=== PATIENT | female | born 1960 | race African-American/Black ===

== ENCOUNTER 2019-06-08 17:35 | Inpatient (IN) | payer OTHER ==
--- NOTE | 2019-06-08 18:33 | RAD ---
THREE VIEWS RIGHT WRIST: 06/08/19 HISTORY: Swelling to lower arm with limited mobility and increasing numbness. Injury to right arm and wrist. FINDINGS: There is suggestion of a few lucencies within the lateral aspect of the lunate bone which could relat e to minimal subchondral cystic changes. There is no evidence of a fracture, dislocation, or other os seous abnormality involving the right wrist. IMPRESSION: No acute osseous abnormality visualized. If patient's symptoms persist, conservative management and f ollow-up imaging is advised. POS: GIL[facility]
[2019-06-08 18:40] LABS: #Eosinphils 0.2 thou/uL (0.0-0.7); #Lymphocytes 1.3 thou/uL (1.20-3.40); #Monocytes 0.6 thou/uL (0.11-0.59); #Neutrophils 6.4 thou/uL (1.40-6.50); %Basophils 0.1 % (0.0-1.0); %Eosinophils 2.5 % (0.0-10.0); %Monocytes 7.4 % (0.0-10.0); Hemoglobin 7.8 g/dL (12.0-16.0); Mean Corpuscular HGB CONC 30.8 g/dL (32.0-36.0); Mean Corpuscular Hemoglobin 20.2 pg (27.0-31.0); Mean Corpuscular Volume 65.6 fL (78.0-98.0); Mean Platelet Volume 10.5 fL (7.4-10.4); Platelet Count 330 thou/uL (130-400); RBC Distribution Width 19.3 % (11.5-14.5); Red Blood Cell (RBC) Count 3.87 mill/uL (4.20-5.40); White Blood Cell (WBC) Count 8.5 thou/uL (4.8-10.8)
[2019-06-08 18:53] LABS: ALT (SGPT) Less than 7 U/L (8-55); AST (SGOT) 8 U/L (5-34); Albumin 3.6 g/dL (3.5-5.0); Alkaline Phosphatase 125 U/L (40-110); Anion Gap 13 mmol/L (10-20); BUN (Urea Nitrogen) 24 mg/dL (9.8-20.1); Bilirubin, Total 0.2 mg/dL (0.2-1.2); Calc. Creatinine Clearance 0 mL/min (70-130); Calcium 8.8 mg/dL (7.8-10.44); Carbon Dioxide 20 mmol/L (22-29); Chloride 110 mmol/L (98-107); Estimated GFR-MDRD 30; Globulin 4.9 g/dL (2.4-3.5); Potassium 4.9 mmol/L (3.5-5.1); Protein, Total 8.5 g/dL (6.0-8.3); Sodium 138 mmol/L (136-145)
[2019-06-08 18:57] LABS: Glucose 39 mg/dL (70-105)
[2019-06-08 19:01] LABS: Anisocytosis SLIGHT = 6-15 cells (100X) (0-5/hpf); Hypochromia SLIGHT = 6-15 cells (100X) (0-5/hpf); MDiff Complete? YES; Microcytosis MODERATE=15-30 cells (100X) (0-5/hpf); Ovalocytes SLIGHT = 2-5 cells (100X) (0-1/hpf); Platelet Morphology Comment Appears Adequate; Polychromasia SLIGHT = 2-3 cells (100X) (0-2/hpf); Schistocytes SLIGHT = 2-5 cells (100X) (0-1/hpf); Target Cells MODERATE= 6-15 cells (100X) (0-1/hpf)
[2019-06-08 19:31] LABS: Bacteria/HPF 1+ HPF (None Seen); Bilirubin Negative (Negative); Blood, Urine 2+ (Negative); Clarity Turbid (Clear); Glucose, Urine (Dipstick) Normal (Negative); Leukocyte 75 Leu/uL (Negative); Nitrite Negative (Negative); Protein, Urine (Dipstick) 50 mg/dL (Neg-Trace); RBC/HPF Greater than 50 HPF (0-3); Squamous Epithelial 0-3 HPF (0-3); Urobilinogen Normal mg/dL (Less than 2)
--- NOTE | 2019-06-08 19:40 | RAD ---
Chest AP view INDICATION: Dyspnea COMPARISON: None FINDINGS: Lungs: The lungs are clear Cardiac silhouette: The cardiomediastinal silhouette appears within normal limits. Pulmonary vasculature: Normal Pleural spaces: No pleural effusion or pneumothorax is demonstrated. Upper abdomen: No abnormality seen. Osseous structures: No acute osseous abnormality. Additional findings: None. IMPRESSION: No acute cardiopulmonary abnormality.
--- NOTE | 2019-06-08 20:52 | ULT ---
Doppler venous ultrasound of the right upper extremity INDICATION: History of right wrist pain and swelling TECHNIQUE: Grayscale, color Doppler and spectral Doppler images were obtained of the venous structure s of the right upper extremity. The right internal jugular vein, right subclavian vein, right-sided axillary vein, right cephalic vein, right basilic vein, right brachial vein, right radial and ulnar v eins were assessed. FINDINGS: There is appropriate, compression flow and phasicity seen within the right internal jugular vein. There is appropriate flow and phasicity seen within the right subclavian vein. Normal flow, compression and augmentation is seen within the right axillary vein, right brachial vein, right basil ic vein, right cephalic vein, right radial and right ulnar vein. Impression: No evidence of venous thrombosis within the right upper extremity.
[2019-06-08] MEDS ORDERED: Sodium Chloride 0.9% 100 ML ONE (21:40)
[2019-06-08] MEDS ORDERED: cefTRIAXone\\ROCEPHIN 2 GM VIAL ONE (21:40)
[2019-06-08] MEDS ORDERED: Ondansetron PF 4 MG/2 ML Vial IVP PRN (23:35)
[2019-06-08] MEDS ORDERED: Ondansetron ODT 4 MG TAB SL PRN (23:35)
[2019-06-09 00:19] VITALS: BMI 31.8
[2019-06-09] MEDS ORDERED: Dextrose 5% in Water 1,000 ML IV PRN (02:23)
[2019-06-09] MEDS ORDERED: Dextrose 50% Abboject 50 ML SYRINGE IVP PRN (02:23)
[2019-06-09] MEDS ORDERED: Acetaminophen 650 MG Suppository PR PRN (02:32)
[2019-06-09] MEDS: Acetaminophen 325 MG TAB PO PRN ×2 (02:41→22:35)
[2019-06-09] MEDS ORDERED: NIFEdipine XL 60 MG TAB PO SCH (11:00)
[2019-06-09] MEDS ORDERED: Losartan 25 MG TAB PO SCH (11:00)
[2019-06-09] MEDS ORDERED: Metoprolol Tartrate 100 MG TAB PO SCH (11:00)
--- NOTE | 2019-06-09 18:56 | RAD ---
Exam: 2 views right wrist HISTORY: Pain. Swelling. FINDINGS: Intercarpal and radiocarpal joint spaces are preserved. No fracture. No cortical irregulari ty or periosteal reaction. Radial styloid and ulnar styloid are preserved. IMPRESSION: No fracture.
--- NOTE | 2019-06-09 18:57 | RAD ---
Exam:Right elbow 2 view HISTORY: Pain. Swelling. COMPARISON: None FINDINGS: Preserved joint spaces. No fracture or malalignment. No joint effusion. IMPRESSION: Unremarkable 2 views right elbow
--- NOTE | 2019-06-09 18:58 | RAD ---
Exam:Right hand 3 views HISTORY: Pain. Swelling. COMPARISON: None FINDINGS: Preserved joint spaces. No fracture, cortical irregularity or periosteal reaction. IMPRESSION: 3 views right hand is unremarkable
[2019-06-09] MEDS: NIFEdipine XL 60 MG TAB PO SCH (22:30)
[2019-06-09] MEDS: Metoprolol Tartrate 100 MG TAB PO SCH (22:30)
[2019-06-09] MEDS: Atorvastatin Calcium 20 MG TAB PO SCH (22:30)
[2019-06-09] MEDS: cefTRIAXone\\ROCEPHIN 2 GM in Sodium Chloride 0.9% 100 ML IVPB SCH (22:35)
--- NOTE | 2019-06-10 00:20 | CON ---
DATE OF CONSULTATION: 06/09/2019 REQUESTING PHYSICIAN: Michael Simon MD REASON FOR CONSULTATION: Iron deficiency anemia. HISTORY OF PRESENT ILLNESS: Gabriela Cat is a very pleasant 58-year-old woman, who was admitted to the hospital last night with symptomatic iron deficiency anemia. She also had a mild fever as well as some swelling of the right wrist upon presentation, currently afebrile. Notably, she was noted to be anemic over the past several months. Outpatient referral had been made to our clinic back in March, but the patient had not been able to make an appointment yet. At that time, ferritin was 23, iron 17, with a 6% iron saturation. The patient reports that for several weeks, she has had progressive generalized weakness and fatigue, and also some reduction in appetite, occasional postprandial abdominal pain, and diarrhea. There has been no nausea or vomiting with this. She denies any melena or hematochezia, but really does not look at her bowel movements. She reports that she was switched from Coumadin to Eliquis in October of last year. Ever since that time, she has occasionally seen what appeared to be some spots of blood in the urine, but this is not too frequent. She denies any other bleeding from anywhere else such as epistaxis or hematemesis. Upon presentation here, her hemoglobin was 7.8 with MCV 65.6. Her Eliquis is being held today. She has no other complaints. REVIEW OF SYSTEMS: Full review of systems including constitutional, head, eyes, ears, nose, throat, GI, , cardiovascular, respiratory, musculoskeletal, neurologic systems is negative except as noted in the HPI. PAST MEDICAL HISTORY: Hypertension; hyperlipidemia; diabetes; osteoarthritis; tobacco abuse; CVA x2; gout; atrial fibrillation, currently on Eliquis. ALLERGIES: NO KNOWN DRUG ALLERGIES. OUTPATIENT MEDICATIONS: Lipitor, metformin, Diovan, metoprolol, hydrochlorothiazide, meloxicam 15 mg daily, insulin, Eliquis 2.5 mg b.i.d. SOCIAL HISTORY: She smokes one pack cigarettes per day. No alcohol or drug use. FAMILY HISTORY: Negative for GI malignancy. Her mother evidently had bleeding stomach ulcers. PHYSICAL EXAMINATION: VITAL SIGNS: Temperature 99.2, pulse 94, blood pressure 155/73, 94% oxygen saturation on room air. GENERAL: No acute distress, sitting up in bed comfortably. SKIN: She is a bit pale. No jaundice. No rashes are palpable. EYES: No scleral icterus. Extraocular movements intact. ENT: Mucous membranes moist. No oral lesions. LYMPH: No submandibular or supraclavicular lymphadenopathy. THYROID: Nontender to palpation. HEART: Regular rate and rhythm. LUNGS: Clear to auscultation bilaterally. ABDOMEN: Nondistended. Bowel sounds present. Soft, nontender to palpation. EXTREMITIES: No peripheral edema. LABORATORY STUDIES: WBC 8.5, hemoglobin 7.8, platelets 330. Sodium 138, potassium 4.9, BUN 24, creatinine 2.03, glucose 87, calcium 8.8. Total bilirubin 0.2, alkaline phosphatase 125, AST 8, ALT less than 7, albumin 3.6. Urinalysis shows greater than 50 rbc's, 11 to 20 wbc's. ASSESSMENT AND PLAN: 1. Iron deficiency anemia. 2. Atrial fibrillation, on Eliquis. 3. Microscopic hematuria, with occasional visible spotty gross hematuria. I had a long conversation with the patient and her family about iron deficiency anemia and possible causes. She has some occasional small volume gross hematuria, but unclear whether that can be blamed for her anemia or not. Occult gastrointestinal bleeding lesion does need to be considered. I recommend that we proceed with EGD and colonoscopy, she has never undergone any endoscopic investigation in the past. Notably, she takes meloxicam, so there is some risk for peptic ulcer disease. We need to hold the Eliquis two days prior to the procedure, so continue to hold the Eliquis tomorrow, be on clear liquids tomorrow, and we will plan for bowel preparation tomorrow evening with EGD and colonoscopy the following day. The patient understands and agrees with the plan. Thank you for the consultation. Please call at any time with questions or concerns. Job ID: [id number]
--- NOTE | 2019-06-10 00:48 | CON ---
DATE OF CONSULTATION: 06/09/2019 CHIEF COMPLAINT: Right upper extremity pain, elbow pain, and wrist pain. HISTORY OF PRESENT ILLNESS: Ms. Cat is a 58-year-old female who was admitted currently for anemia workup, for her right arm pain. The patient is a 58-year-old type 1 diabetic, who is complaining of right elbow swelling and pain. She states she hit her elbow on the sink about 2 weeks ago and the wrist, and noticed swelling which started increasing in the last couple of days. The patient was seen by her primary care doctor, known to have anemia, admitted for transfusion. PAST MEDICAL HISTORY: Includes hyperlipidemia, hypertension, type 1 diabetes, transient ischemic attacks, irregular heartbeat, chronic kidney disease. PAST SURGICAL HISTORY: Includes previous neck procedure, not otherwise specified. ALLERGIES: NO KNOWN DRUG ALLERGIES. MEDICATIONS: Include: 1. Atorvastatin. 2. Metformin. 3. Diovan. 4. Metoprolol. 5. Hydrochlorothiazide. 6. Meloxicam. 7. Novolin. 8. Eliquis. SOCIAL HISTORY: Nonsmoker, nondrinker. Denies illicit drug use. PHYSICAL EXAMINATION: VITAL SIGNS: 99.2, 94, 20, 94% on room air, 155/73. GENERAL: Alert and oriented female, in no acute distress, resting comfortably in bed. Right upper extremity shows swelling unable to make a fist. NEUROVASCULARLY: Intact. Palpable refill. She is tender over her olecranon. There is IV in place. LABORATORY VALUES: Showing a white cell count 8, H and H of 7 and 25. Chemistry shows a low glucose of 39 and a creatinine of 2.03. X-rays of her wrist show no acute fracture. The patient had an ultrasound of her right upper extremity, which shows no DVT. IMPRESSION: Right upper extremity swelling elbow and wrist. ASSESSMENT AND PLAN: I will send the patient for elbow films. I am sure this is just a contusion with swelling postoperatively, which just will need some conservative management with range of motion of hands and fingers to get this swelling out. There are no acute fractures or acute intervention. I will follow up with the x-rays the morning. Job ID: [id number]
[2019-06-10 05:42] LABS: #Eosinphils 0.2 thou/uL (0.0-0.7); #Lymphocytes 1.4 thou/uL (1.20-3.40); #Monocytes 0.7 thou/uL (0.11-0.59); #Neutrophils 3.6 thou/uL (1.40-6.50); %Basophils 0.8 % (0.0-1.0); %Eosinophils 2.6 % (0.0-10.0); %Lymphocytes 24.1 % (21.0-51.0); %Neutrophils 61.5 % (42.0-75.0); Hemoglobin 7.6 g/dL (12.0-16.0); Mean Corpuscular HGB CONC 30.6 g/dL (32.0-36.0); Mean Corpuscular Hemoglobin 20.1 pg (27.0-31.0); Mean Corpuscular Volume 65.7 fL (78.0-98.0); Mean Platelet Volume 10.3 fL (7.4-10.4); Platelet Count 311 thou/uL (130-400); RBC Distribution Width 19.3 % (11.5-14.5); Red Blood Cell (RBC) Count 3.76 mill/uL (4.20-5.40); White Blood Cell (WBC) Count 5.9 thou/uL (4.8-10.8)
[2019-06-10 06:01] LABS: ALT (SGPT) Less than 7 U/L (8-55); AST (SGOT) 10 U/L (5-34); Albumin 3.2 g/dL (3.5-5.0); Alkaline Phosphatase 106 U/L (40-110); Anion Gap 16 mmol/L (10-20); BUN (Urea Nitrogen) 25 mg/dL (9.8-20.1); Bilirubin, Total 0.2 mg/dL (0.2-1.2); Calc. Creatinine Clearance 38 mL/min (70-130); Calcium 8.1 mg/dL (7.8-10.44); Carbon Dioxide 19 mmol/L (22-29); Chloride 108 mmol/L (98-107); Estimated GFR-MDRD 30; Globulin 4.4 g/dL (2.4-3.5); Glucose 127 mg/dL (70-105); Potassium 4.6 mmol/L (3.5-5.1); Protein, Total 7.6 g/dL (6.0-8.3); Sodium 138 mmol/L (136-145); Uric Acid 9.7 mg/dL (2.6-6.0)
[2019-06-10] MEDS: Metoprolol Tartrate 100 MG TAB PO SCH ×2 (08:44→20:08)
[2019-06-10] MEDS: Losartan 25 MG TAB PO SCH (08:44)
[2019-06-10] MEDS: NIFEdipine XL 60 MG TAB PO SCH ×2 (08:44→20:06)
--- NOTE | 2019-06-10 09:28 | PRG ---
DATE OF SERVICE: 06/10/2019 SUBJECTIVE: Ms. Cat is feeling alright this morning. She has no complaints of abdominal pain or nausea. She does say in paying more attention to her stool recently maybe there has been some intermittent bright red blood, but again states mainly she will see spotting of blood in her urine from [id number]. She recalls having a large nosebleed episode a couple of years ago, but none since then. OBJECTIVE: VITAL SIGNS: Temperature 98.2, spiked at 100.0 last night; pulse 87; blood pressure 145/73; oxygen saturation 94% on room air. GENERAL: No acute distress. HEART: Regular rate and rhythm. LUNGS: Clear to auscultation bilaterally. ABDOMEN: Soft, nontender to palpation. EXTREMITIES: No peripheral edema. LABORATORY STUDIES: Hemoglobin 7.6, WBC 5.9, MCV 65.7, and platelets 311. ESR is greater than 130. Sodium 138, potassium 4.6, BUN 25, creatinine 2.03, glucose 143, uric acid 9.7, total bilirubin 0.2, alkaline phosphatase 106, AST 10, and ALT less than 7. ASSESSMENT AND PLAN: 1. Iron deficiency anemia. 2. Atrial fibrillation, on Eliquis. 3. Microscopic hematuria, with the patient report of intermittent gross hematuria. Eliquis is being held today as well as yesterday. We are still planning on diagnostic EGD and colonoscopy tomorrow to rule out occult GI bleeding lesion as a contributor to her iron deficiency anemia. Depending on findings, I would recommend also consideration of urologic workup. Further recommendations following EGD/colonoscopy tomorrow. Job ID: [id number]
[2019-06-10] MEDS ORDERED: GoLYTELY 4,000 ml Bottle PO SCH (09:30)
[2019-06-10] MEDS ORDERED: Bacteriostatic Water 30 ML VIAL FS PRN ×2 (15:56)
[2019-06-10] MEDS ORDERED: methylPREDNISolone Sod Succ/PF 125 MG/2 ML VIAL IVP SCH (16:00)
[2019-06-10] MEDS: Insulin Regular 300 UNITS/3 ML VIAL SC PRN (16:55)
[2019-06-10] MEDS: cefTRIAXone\\ROCEPHIN 2 GM in Sodium Chloride 0.9% 100 ML IVPB SCH (20:03)
[2019-06-10] MEDS: Atorvastatin Calcium 20 MG TAB PO SCH (20:06)
--- NOTE | 2019-06-10 21:46 | CON ---
DATE OF CONSULTATION: HISTORY OF PRESENT ILLNESS: Ms. Cat is a 58-year-old female, was admitted for right elbow and right wrist pain with swelling. History of gout. Patient had injury two weeks ago and swelling, decreased function of right hand. Previous x-rays of the wrist were normal. PHYSICAL EXAMINATION: GENERAL: No acute distress. EXTREMITIES: Swelling improved. Motion improved. No erythema or ecchymosis noted. Tenderness improved. RADIOGRAPHS: Radiographs of the right elbow show no acute fracture or dislocation. IMPRESSION: Possible gout versus cellulitis versus acute soft tissue injury. ASSESSMENT AND PLAN: The patient will continue medical management. No surgical intervention required. She may follow up with PCP as needed. Job ID: [id number]
[2019-06-10] MEDS: methylPREDNISolone Sod Succ 40 MG VIAL IVP SCH (22:00)
[2019-06-11] MEDS: Metoprolol Tartrate 100 MG TAB PO SCH ×2 (05:06→21:02)
[2019-06-11] MEDS: methylPREDNISolone Sod Succ 40 MG VIAL IVP SCH ×3 (05:06→13:56)
[2019-06-11] MEDS: Insulin Regular 300 UNITS/3 ML VIAL SC PRN ×3 (06:58→17:01)
[2019-06-11 07:39] LABS: Bacteria/HPF None Seen HPF (None Seen); Bilirubin Negative (Negative); Blood, Urine 2+ (Negative); Clarity Clear (Clear); Glucose, Urine (Dipstick) 50 mg/dL (Negative); Leukocyte Negative Leu/uL (Negative); Nitrite Negative (Negative); Protein, Urine (Dipstick) 70 mg/dL (Neg-Trace); Squamous Epithelial 0-3 HPF (0-3); Urobilinogen Normal mg/dL (Less than 2)
[2019-06-11 08:12] LABS: WBC/HPF 0-3 HPF (0-3)
[2019-06-11] MEDS: Losartan 25 MG TAB PO SCH (09:38)
[2019-06-11] MEDS ORDERED: PROPOFOL 200 MG/20 ML VIAL ONE (10:00)
--- NOTE | 2019-06-11 11:41 | OP ---
DATE OF PROCEDURE: 06/11/2019 RIGGER THIRD SURGEON: None. PROCEDURES PERFORMED: 1. Esophagogastroduodenoscopy with biopsies. 2. Colonoscopy with snare polypectomy. INDICATION: Iron deficiency anemia. MEDICATIONS: See Anesthesia record. FINDINGS: After discussion of the risks, benefits, and alternatives of the procedure, informed consent was obtained and witnessed. Pre-endoscopic cardiopulmonary examination was satisfactory. Time-out was performed before sedation was achieved. Sedation was achieved with Anesthesia assistance in the endoscopy unit. A Pentax adult upper endoscope was placed into the oropharynx and passed through the cricopharyngeus under direct visualization. The esophageal mucosa appeared normal throughout with a normal-appearing Z-line. The endoscope was advanced into the stomach. Forward and retroflexed views of the entire gastric mucosa were obtained. The gastric mucosa appeared normal throughout. There was no evidence of any old blood, active bleeding or bleeding lesions. The endoscope was advanced through the pylorus and into the first and second portions of the duodenum, which also appeared normal. I obtained biopsies from the second portion of the duodenum, to rule out celiac disease. The upper endoscope was completely withdrawn and the patient was repositioned. Digital rectal exam was performed, which demonstrated some external hemorrhoidal skin tags. A Pentax adult colonoscope was inserted into the anus and passed forward to the cecum in the usual fashion. The cecal base was identified by the appendiceal orifice as well as the ileocecal valve. The terminal ileum was not intubated. The colonoscope was slowly withdrawn in a gradual and circumferential manner with careful examination of the entire colonic mucosa. The quality of the prep was adequate. There was no evidence of any old blood or active bleeding or bleeding lesions within the colon. There was diverticulosis scattered throughout the entire colon. In the sigmoid colon, there were 2 small polyps, each measuring about 2 mm in diameter. These were both completely removed with cold snare and retrieved for pathology. Retroflexion in the rectum demonstrated internal hemorrhoids. The colonoscope was completely withdrawn and the patient allowed to recover. The patient tolerated the procedure well. There were no immediate postprocedure complications. IMPRESSION: 1. Normal esophagogastroduodenoscopy, with duodenal biopsies obtained to rule out celiac disease. 2. Two small sigmoid polyps, completely removed with cold snare and retrieved for pathology. 3. Diverticulosis throughout the colon. 4. Internal hemorrhoids. RECOMMENDATIONS: 1. Follow up pathology. 2. Repeat colonoscopy based on pathology. If one or both polyps is an adenoma, repeat colonoscopy in 5 years. If both are hyperplastic, repeat colonoscopy in 10 years. 3. Iron supplementation. 4. Stop smoking. 5. If there is no improvement in anemia despite iron supplementation, we could potentially consider small bowel capsule endoscopy on an outpatient basis. GI will sign off. Please call back anytime with questions or concerns. Job ID: [id number]
--- NOTE | 2019-06-11 16:04 | ULT ---
Exam: Bilateral renal ultrasound HISTORY: Hematuria COMPARISON: None FINDINGS: Right kidney: Normal cortical echotexture. No hydronephrosis. Right kidney measurements: 4.6 x 5.3 x 10.4 cm. Left kidney: Normal cortical echotexture. No hydronephrosis Left kidney measurements 4.7 x 5.0 x 8.6 cm. Urinary bladder: Normal mucosa. 33 mL of bladder volume. IMPRESSION: No hydronephrosis.
[2019-06-11] MEDS: Atorvastatin Calcium 20 MG TAB PO SCH (21:01)
[2019-06-11] MEDS: Cepastat Lozenges 1 LOZ PO PRN (21:01)
[2019-06-11] MEDS: NIFEdipine XL 60 MG TAB PO SCH (21:01)
[2019-06-11] MEDS: cefTRIAXone\\ROCEPHIN 2 GM in Sodium Chloride 0.9% 100 ML IVPB SCH (21:03)
[2019-06-11] MEDS: HumuLIN 70/30 (300 UNITS/3 ML VIAL) SC SCH (21:04)
[2019-06-12] MEDS: methylPREDNISolone Sod Succ 40 MG VIAL IVP SCH ×5 (01:08→22:25)
[2019-06-12 05:27] LABS: Red Blood Cell (RBC) Count 3.94 mill/uL (4.20-5.40)
[2019-06-12] MEDS: Insulin Regular 300 UNITS/3 ML VIAL SC PRN ×3 (06:04→18:09)
[2019-06-12 06:47] LABS: Anion Gap 15 mmol/L (10-20); BUN (Urea Nitrogen) 29 mg/dL (9.8-20.1); Calc. Creatinine Clearance 38 mL/min (70-130); Calcium 8.7 mg/dL (7.8-10.44); Carbon Dioxide 21 mmol/L (22-29); Chloride 106 mmol/L (98-107); Estimated GFR-MDRD 31; Glucose 254 mg/dL (70-105); Iron Less than 8 ug/dL (50-170); Iron Binding Capacity, Total 249 mcg/dL (265-497); Potassium 4.6 mmol/L (3.5-5.1); Sodium 137 mmol/L (136-145)
[2019-06-12 07:09] LABS: Ferritin 58.35 ng/mL (10-291)
[2019-06-12 07:24] LABS: #Basophils 0.1 thou/uL (0.0-0.2); #Lymphocytes 0.6 thou/uL (1.20-3.40); #Monocytes 0.4 thou/uL (0.11-0.59); #Neutrophils 9.8 thou/uL (1.40-6.50); %Basophils 0.6 % (0.0-1.0); %Eosinophils 0.1 % (0.0-10.0); %Lymphocytes 5.2 % (21.0-51.0); %Monocytes 3.2 % (0.0-10.0); %Neutrophils 90.8 % (42.0-75.0); Hemoglobin 7.9 g/dL (12.0-16.0); Hypochromia SLIGHT = 6-15 cells (100X) (0-5/hpf); MDiff Complete? YES; Mean Corpuscular HGB CONC 29.7 g/dL (32.0-36.0); Mean Corpuscular Hemoglobin 19.5 pg (27.0-31.0); Mean Corpuscular Volume 65.5 fL (78.0-98.0); Mean Platelet Volume 4.8 fL (7.4-10.4); Microcytosis MODERATE=15-30 cells (100X) (0-5/hpf); Platelet Count 341 thou/uL (130-400); Platelet Morphology Comment Appears Adequate; Polychromasia SLIGHT = 2-3 cells (100X) (0-2/hpf); RBC Distribution Width 19.5 % (11.5-14.5); Red Blood Cell (RBC) Count 4.07 mill/uL (4.20-5.40); Schistocytes SLIGHT = 2-5 cells (100X) (0-1/hpf); White Blood Cell (WBC) Count 10.8 thou/uL (4.8-10.8)
--- NOTE | 2019-06-12 07:42 | HP ---
REASON FOR ADMISSION/CHIEF COMPLAINT: Severe anemia. HISTORY OF PRESENT ILLNESS: Ms. Cat is a 58-year-old female with past medical history of hypertension, diabetes, chronic atrial fibrillation , on Eliquis, was sent to the hospital because of anemia. The patient was seen in the office and had routine labs done. She had a history of anemia and CBC showed hemoglobin of 6.8, which is iron deficiency. The patient also has some shortness of breath and exertion as well. She was sent to the hospital for evaluation. In the ER, the patient was found to have hemoglobin of 7.8. In view of her iron deficiency anemia, she is being admitted for further evaluation and management. The patient also has right elbow and wrist pain going on for more than a week. No history of any injury. Right elbow and wrist both were swollen, unable to move both elbow and wrist. The patient had ultrasound done and that revealed no evidence of any thrombosis. The patient does not have any chest pain. She has shortness of breath. No dizziness. The patient was also found to have hemorrhagic cystitis, given ceftriaxone. PAST MEDICAL HISTORY: 1. Hypertension. 2. Diabetes mellitus. 3. Hyperlipidemia. 4. Chronic atrial fibrillation. PAST SURGICAL HISTORY: Status post biopsy of neck. CURRENT MEDICATIONS: The patient is on: 1. Atorvastatin 20 mg daily. 2. Metformin 500 mg b.i.d. 3. Diovan 160 daily. 4. Metoprolol 50 mg b.i.d. 5. Hydrochlorothiazide 12.5 mg daily. 6. Insulin 70/30 of 40 units in the morning and 30 units in the evening. 7. Eliquis 2.5 mg b.i.d. FAMILY HISTORY: Nothing contributory. SOCIAL HISTORY: The patient lives with family. No history of alcohol intake. Smokes one pack a day. REVIEW OF SYSTEMS: CARDIOVASCULAR: No chest pain. Has shortness of breath on exertion. RESPIRATORY: No fever or cough. GASTROINTESTINAL: No abdominal pain. No melena CENTRAL NERVOUS SYSTEM: No headache. No dizziness. PHYSICAL EXAMINATION: GENERAL: The patient is alert, awake, oriented x3. VITAL SIGNS: Temp 98, pulse 94, respiratory rate 20, blood pressure 159/68. HEENT: Head is normocephalic, atraumatic. Pupils equal, round, reactive to light. Nasopharynx is pale and dry. NECK: Supple. No JVD. LUNGS: Bilateral air entry present. No rales. No rhonchi. HEART: S1 and S2, regular. ABDOMEN: Soft. No distention. No tenderness. No organomegaly. Bowel sounds present. RECTAL: Deferred. CENTRAL NERVOUS SYSTEM: No focal neural deficit. EXTREMITIES: Right elbow is swollen. Right wrist also is swollen. Both are very tender. Whole right forearm to the fingers is diffusely swollen. Right elbow is warm to touch, but no erythema. Range of movement is markedly decreased at the elbow. LABORATORY DATA: CBC shows WBC 8.5, hemoglobin 7.8, hematocrit 25, platelets 330. Metabolic panel; sodium 138, potassium 4.9, chloride 110, CO2 of 20, BUN 24, creatinine 2, glucose 39. Urinalysis revealed wbc's 11 to 20, rbc greater than 50, bacteria 1+. ASSESSMENT: 1. Severe iron deficiency anemia, symptomatic. 2. Right elbow swelling, pain and also right wrist pain. 3. Hypoglycemia. 4. Hypertension. 5. Atrial fibrillation, chronic. On anticoagulation. 6. History of pulmonary hypertension. 7. Chronic kidney disease stage 3. PLAN: 1. Vital signs q.4 hours. 2. Activity, as tolerated. 3. Allergies, NKDA. 4. Hep-Lock. 5. Transfuse packed red blood cells p.r.n. 6. We will get an x-ray of the right elbow and wrist. 7. GI consult. 8. Continue home medication. 9. Accu-Chek before meals and at bedtime. Sliding scale mild with regular insulin. 10. We will hold insulin and metformin. 11. Orthopedic consult. Job ID: [id number] [facility]
[2019-06-12] MEDS: Metoprolol Tartrate 100 MG TAB PO SCH ×2 (09:07→22:17)
[2019-06-12] MEDS: HumuLIN 70/30 (300 UNITS/3 ML VIAL) SC SCH ×2 (09:08→22:18)
[2019-06-12] MEDS: Losartan 25 MG TAB PO SCH (10:28)
--- NOTE | 2019-06-12 11:38 | CON ---
DATE OF CONSULTATION: 06/12/2019 REASON FOR CONSULTATION: 1. Gross hematuria. 2. Possible urinary tract infection. 3. History of long-term cigarette smoking 40 pack years. HISTORY OF PRESENT ILLNESS: Ms. Gabriela Cat is a very pleasant 58-year-old female, who was admitted on 06/08/2019, due to severe anemia. Her hemoglobin was down to 6.8, and she had evidence of iron deficiency with microcytic anemia. The patient had shortness of breath and exertional dyspnea as well. The patient was admitted to the hospital for evaluation via the Emergency Department, where she was found to have a hemoglobin of 7.8. The patient was admitted for further evaluation and management. Ms. Cat's family medical history is notable for renal cancer in her maternal aunt and her maternal grandmother. Gabriela is 3, para 2, and is postmenopausal since her mid 40s. She is currently 58 years old, so has been postmenopausal for about 18 years. She has not ever been on estrogen replacement products. She was smoking one and half packs per day and is now down to one pack per day and was smoking right up until hospital admission. PAST MEDICAL HISTORY: 1. Hypertension. 2. Diabetes mellitus. 3. Hyperlipidemia. 4. Chronic atrial fibrillation. 5. Long-term cigarette smoker greater than 40 pack years. 6. Hematuria. PAST SURGICAL HISTORY: The patient had a biopsy of her thyroid gland many years ago. She has had no gynecologic surgeries. MEDICATIONS: Home medication list includes the followin. Atorvastatin 20 mg per day. 2. Metformin 500 mg twice a day. 3. Diovan 160 mg per day. 4. Metoprolol 50 mg p.o. b.i.d. 5. Hydrochlorothiazide 12.5 mg p.o. daily. 6. Insulin 70/30, 40 units in the morning and 30 units in the evening. 7. Eliquis 2.5 mg b.i.d. FAMILY MEDICAL HISTORY: Notable for the patient's maternal aunt and maternal grandmother both having had renal cancer. SOCIAL HISTORY: The patient resides with her family. She specifically denies any alcohol intake and is currently a one pack per day cigarette smoker, down from 1.5 packs per day in the past with a 40 pack year or more cigarette smoking history. There is no substance abuse history. The patient has had no industrial exposures at work outside of the home. REVIEW OF SYSTEMS: CARDIOVASCULAR: The patient currently denies chest pain and does have shortness of breath on exertion, likely secondary to her anemia. PULMONARY: No fever or cough. No sick household contacts. GASTROINTESTINAL: Denies gross blood per rectum, but does not check her stool. Does not look at her stool and does not look the toilet paper after wiping. GENITOURINARY: The patient did notice when wiping on the front some blood on toilet paper. CENTRAL NERVOUS SYSTEM: No headache or stroke symptoms. MUSCULOSKELETAL: No complaints. SKIN SURVEY: No significant scar as the patient does have some varices in her legs. PHYSICAL EXAMINATION: VITAL SIGNS: Temperature is 98.5, pulse 77, respiratory rate is 20, room air O2 saturation is 93%, and blood pressure is 147/78, down from a fairly hypertensive 162/79 earlier in the day. HEAD, EYES, EARS, NOSE, AND THROAT: Extraocular movements are intact. Sclerae anicteric. Oropharynx is clear. NECK: Supple. LUNGS: Clear to auscultation bilaterally. CARDIAC: Regular rate and rhythm without murmur, rub, or gallop. ABDOMEN: Soft, obese, and nontender. There are no surgical scars present. GENITOURINARY: The patient has normal external genitalia. Urethral meatus is slightly reddened in appearance in the periurethral tissue, has pallor consistent with a postmenopausal low estrogen state. There is minimal anterior vaginal wall descent on Valsalva maneuver. RECTAL: Examination was not performed. EXTREMITIES: Appear within normal limits with no clubbing, cyanosis, or edema. There are some varices on her legs bilaterally. NEUROLOGIC: Cranial nerves 3 through 11 appear to be grossly intact. The patient is able ambulate, move all 4 extremities against gravity without difficulty. LABORATORY STUDIES: After initial low hematocrit, her hematocrit today is notable for a rise to 26.7. Current hemoglobin is 7.9. The patient does not have an elevation of her white count, but it is up to 10.8 today. The serum chemistry show current blood urea nitrogen of 29 and creatinine of 1.99 with an estimated glomerular filtration of 31, consistent with stage IIIB chronic renal insufficiency. Her total iron level is less than 8, which is low. Total iron binding concentration is 249. Folate level is 2.2, suggesting possible metabolic cause for the patient's current anemia. ASSESSMENT AND PLAN: 1. Current cigarette smoking. Smoking cessation is indicated. 2. Gross hematuria. It is unclear where in the context of an actual infection as the microbiology report shows a mixed culture with some Escherichia coli suggesting contamination. I recommend repeat straight catheterization and obtaining a repeat culture. The patient has been on broad-spectrum antibiotics. So, this may not be a fruitful endeavor. Since she has been on antibiotic coverage, she may be suitable for cystoscopic evaluation in the OR and I did go ahead and post her for cystoscopic evaluation and retrograde pyelography. Upper tract evaluation has already been performed using a renal ultrasound, which generally is reasonable in most females. Given the history of renal cancer in the patient's maternal aunt and a maternal grandmother, the patient might benefit in the future from a contrasted study. I think I would wait and see what her kidney function does after church of a normal hematocrit. There were no masses identified; however. Upper tract evaluation is not yet performed as far as urothelial evaluation that will be performed as a retrograde pyelography if there were no lesions found in the patient's bladder. a. Plan will be for n.p.o. tomorrow for OR at about 1700 hours, which has already been scheduled. 3. Low estrogen state and postmenopausal. The patient should be started on Premarin vaginal cream for now to decrease ascending urinary tract infection risk. Over a 70 minutes initial evaluation consultation assessment time was spent in evaluation of this patient. Job ID: [id number]
[2019-06-12 15:12] LABS: Bilirubin Negative (Negative); Blood, Urine 2+ (Negative); Clarity Turbid (Clear); Glucose, Urine (Dipstick) 30 mg/dL (Negative); Leukocyte 250 Leu/uL (Negative); Nitrite Negative (Negative); Protein, Urine (Dipstick) 300 mg/dL (Neg-Trace); Urobilinogen Normal mg/dL (Less than 2); WBC/HPF 21-50 HPF (0-3)
[2019-06-12 15:15] LABS: Bacteria/HPF 1+ HPF (None Seen)
[2019-06-12] MEDS: NIFEdipine XL 60 MG TAB PO SCH (22:16)
[2019-06-12] MEDS: cefTRIAXone\\ROCEPHIN 2 GM in Sodium Chloride 0.9% 100 ML IVPB SCH (22:17)
[2019-06-12] MEDS: Atorvastatin Calcium 20 MG TAB PO SCH (22:17)
[2019-06-13] MEDS: Estrogens, Conjugated 30 GM TUBE VAG SCH ×2 (01:22→23:09)
[2019-06-13] MEDS: methylPREDNISolone Sod Succ 40 MG VIAL IVP SCH ×4 (05:55→22:26)
[2019-06-13] MEDS: Insulin Regular 300 UNITS/3 ML VIAL SC PRN (05:55)
[2019-06-13] MEDS: Metoprolol Tartrate 100 MG TAB PO SCH ×2 (08:26→22:24)
[2019-06-13] MEDS: Losartan 25 MG TAB PO SCH (08:26)
[2019-06-13] MEDS: HumuLIN 70/30 (300 UNITS/3 ML VIAL) SC SCH ×3 (08:27→22:25)
[2019-06-13] MEDS ORDERED: PROPOFOL 200 MG/20 ML VIAL ONE (10:15)
[2019-06-13] MEDS ORDERED: Lidocaine 1% PF 5 ML VIAL ONE (10:15)
[2019-06-13] MEDS ORDERED: Glycopyrrolate 0.2 MG/ML 5 ML SYRINGE ONE (10:15)
[2019-06-13] MEDS ORDERED: Rocuronium Bromide 10 MG/ML (10ML VIAL) ONE (10:15)
[2019-06-13] MEDS ORDERED: Iothalamate Meglumine 60% 50 ML VIAL FS ONE (17:30)
[2019-06-13] MEDS ORDERED: Fentanyl 100 MCG/2 ML VIAL ONE (18:23)
[2019-06-13] MEDS ORDERED: SUGAMMADEX SODIUM 200 MG/2 ML VIAL ONE (19:16)
--- NOTE | 2019-06-13 19:29 | RAD ---
BILATERAL RETROGRADE PYELOGRAM: 06/13/19 HISTORY: Stent FINDINGS/IMPRESSION: 3 images. There is contrast opacification of the pelvicalyceal systems and ureters bilaterally withou t hydroureteronephrosis or filling defects. POS: OFF
[2019-06-13] MEDS: cefTRIAXone\\ROCEPHIN 2 GM in Sodium Chloride 0.9% 100 ML IVPB SCH (22:24)
[2019-06-13] MEDS: Atorvastatin Calcium 20 MG TAB PO SCH (22:24)
[2019-06-13] MEDS: NIFEdipine XL 60 MG TAB PO SCH (22:24)
--- NOTE | 2019-06-13 23:42 | CON ---
DATE OF CONSULTATION: 06/13/2019 REASON FOR CONSULTATION: 1. Gross hematuria. 2. Possible urinary tract infection. 3. Long-term history of cigarette smoking greater than 40 pack years. BRIEF HISTORY: Ms. Gabriela Cat is a very pleasant 58-year-old female admitted on 06/08/2019 due to severe anemia. Her hemoglobin was down to 6.8 and she had evidence of iron deficiency with microcytic anemia. The patient was noted to have gross hematuria and I was consulted to evaluate her with respect to that. Ms. Cat had indeterminate urine culture, which had a large number contaminant including E coli and repeat culture was recommended. The patient has already been started on antibiotic coverage. Repeat culture was obtained. However, this has no growth at 24 hours. PHYSICAL EXAMINATION: VITAL SIGNS: The patient is afebrile. Temperature of 98.2, pulse 82, respirations are 16, room air O2 saturation is 95%, blood pressure is 148/70. GENERAL: This is a pleasant awake, alert, white female. She is cooperative. HEAD, EARS, EYES, NOSE AND THROAT: Extraocular movements are intact. Sclerae anicteric. Oropharynx is clear. NECK: Supple. LUNGS: Clear to auscultation bilaterally. CARDIAC: Regular rate and rhythm. ABDOMEN: Soft and nontender. PELVIC: Not repeated today. EXTREMITIES: Appear within normal limits. LABORATORY STUDIES: The patient's glucose remains elevated at 267. The patient has not had a new CBC in the last 24 hours. Last white count was 10,800 and hemoglobin of 7.9 with hematocrit of 26.7 on 06/12/2019. Urinalysis obtained on 06/12/2019, showed turbidity to it. There was urinary protein at 700, trace ketones, 2+ blood, 250 units of leukocyte esterase, and 11 to 20 red cells per high-power field, 21 to 50 white blood cells, rare amorphous crystals, squamous epithelial cells was 4 to 6, and urine bacteria was 1+. Urine gravity was up to 1.022. ASSESSMENT AND PLAN: Gross hematuria with concern for urinary tract infection. The patient is postmenopausal and has been started on Premarin cream to be applied per urethra. The patient need to undergo cystoscopic evaluation and retrograde evaluation. Urine culture at present is negative at 24 hours. We will plan on proceeding to the operating room first with cystoscopic evaluation and retrograde pyelography. Over 35 minutes of consultation, assessment and evaluation time was spent in the evaluation and treatment of this patient today. Job ID: [id number]
[2019-06-13] MEDS: Cepastat Lozenges 1 LOZ PO PRN (23:45)
--- NOTE | 2019-06-14 01:19 | OP ---
DATE OF PROCEDURE: 06/13/2019 PREOPERATIVE DIAGNOSES: 1. Concern for gross hematuria. 2. Recent urinary tract infection. 3. Severe anemia. 4. Diabetes mellitus, type 2. POSTOPERATIVE DIAGNOSES: 1. Concern for gross hematuria. 2. Recent urinary tract infection. 3. Severe anemia. 4. Diabetes mellitus, type 2. 5. Hemorrhaging cervical mass. PROCEDURES PERFORMED: 1. Cystourethroscopy with bilateral retrograde pyelography, 13941. 2. Cervical biopsy and colposcopy, 48464. FLAT BREAKDOWN PROCESSOR: None. BRIEF HISTORY: Ms. Gabriela Cat is a pleasant 58-year-old white female admitted to Dr. Michael Simon's service due to anemia and concern for gross hematuria. The patient has undergone evaluation for causes of hematuria during her hospitalization, as well as blood loss. The patient reports seeing no blood per urethra. She does report occasionally seeing blood when wiping, but has not clearly seen blood in her stool or in urine. The patient opted to undergo cystoscopic evaluation today and presented for that. DESCRIPTION OF PROCEDURE: The patient was appropriately identified in the preoperative holding area. Informed written consent was obtained. The patient was brought to the operative suite, appropriately reidentified, placed in the supine position. General anesthesia was established using endotracheal airway. The patient was repositioned in supine lithotomy position and prepped and draped in the usual sterile fashion. The patient was evaluated under anesthesia and had a palpable cervical mass and gross blood in the vagina. Cystoscopic evaluation was performed after sterile prep and drape, and introduced a 22-Armenian cystoscope sheath with obturator and subsequently optic. Evaluated the patient's bladder. There were some signs of recent cystitis in the bladder lining. Ureteric orifices appeared small and petite. Clear urine ejected was observed on left and right-hand sides. the patient was evaluated and there was no gross stones from a fluoroscopic standpoint in her system. We performed bilateral retrograde pyelography, which demonstrated delicate ureters on both sides and delicate upper collecting systems with no clear evidence of filling defects other than normal papilla. Several images were taken on each side. Both sides drained appropriately. The patient then underwent colposcopic evaluation. The patient had blood in her vagina. Colposcopy has identified a probable tumor mass emanating from the patient's cervix. The patient underwent a biopsy of this mass. A small portion of the proximally 7 cm mass was taken. The size of the biopsy was about 0.5 cm. This was sent for permanent section. The patient tolerated the procedure well, was returned to the full supine position, was ultimately extubated in the operative suite, tolerated the procedure well with no untoward findings. The patient was transported to the postoperative recovery room area in good condition. COMPLICATIONS: None. ESTIMATED BLOOD LOSS: Less than 10 mL. OPERATIVE FINDINGS: 1. Cervical mass. 2. No intraluminal bladder lesions other than what would be seen with recovering cystitis. No upper tract filling defects. No evidence of origin for gross hematuria within the urinary tract. Job ID: [id number]
[2019-06-14] MEDS: methylPREDNISolone Sod Succ 40 MG VIAL IVP SCH ×4 (05:31→21:57)
[2019-06-14] MEDS: Insulin Regular 300 UNITS/3 ML VIAL SC PRN ×3 (05:32→17:02)
[2019-06-14] MEDS: Metoprolol Tartrate 100 MG TAB PO SCH ×2 (08:55→21:20)
[2019-06-14] MEDS: Cepastat Lozenges 1 LOZ PO PRN ×2 (08:55→21:59)
[2019-06-14] MEDS: Losartan 25 MG TAB PO SCH (08:55)
[2019-06-14] MEDS: HumuLIN 70/30 (300 UNITS/3 ML VIAL) SC SCH ×2 (08:57→21:21)
[2019-06-14 10:28] LABS: #Lymphocytes 1.3 thou/uL (1.20-3.40); #Monocytes 0.6 thou/uL (0.11-0.59); %Eosinophils 0.1 % (0.0-10.0); %Lymphocytes 9.5 % (21.0-51.0); %Monocytes 4.2 % (0.0-10.0); %Neutrophils 86.2 % (42.0-75.0); Hemoglobin 8.7 g/dL (12.0-16.0); Mean Corpuscular HGB CONC 30.3 g/dL (32.0-36.0); Mean Corpuscular Hemoglobin 20.2 pg (27.0-31.0); Mean Corpuscular Volume 66.8 fL (78.0-98.0); Mean Platelet Volume 8.1 fL (7.4-10.4); Platelet Count 368 thou/uL (130-400); RBC Distribution Width 20.2 % (11.5-14.5); Red Blood Cell (RBC) Count 4.29 mill/uL (4.20-5.40); White Blood Cell (WBC) Count 13.9 thou/uL (4.8-10.8)
[2019-06-14 10:34] LABS: Anion Gap 18 mmol/L (10-20); BUN (Urea Nitrogen) 47 mg/dL (9.8-20.1); Calc. Creatinine Clearance 34 mL/min (70-130); Calcium 8.4 mg/dL (7.8-10.44); Carbon Dioxide 19 mmol/L (22-29); Chloride 104 mmol/L (98-107); Estimated GFR-MDRD 27; Glucose 236 mg/dL (70-105); Potassium 4.6 mmol/L (3.5-5.1); Sodium 136 mmol/L (136-145)
[2019-06-14] MEDS: Sodium Chloride 0.45% 1,000 ML IV SCH (21:18)
[2019-06-14] MEDS: Atorvastatin Calcium 20 MG TAB PO SCH (21:19)
[2019-06-14] MEDS: NIFEdipine XL 60 MG TAB PO SCH (21:20)
[2019-06-14] MEDS: cefTRIAXone\\ROCEPHIN 2 GM in Sodium Chloride 0.9% 100 ML IVPB SCH (21:22)
[2019-06-15] MEDS: methylPREDNISolone Sod Succ 40 MG VIAL IVP SCH ×2 (04:55→11:26)
[2019-06-15] MEDS: Sodium Chloride 0.45% 1,000 ML IV SCH (05:52)
[2019-06-15] MEDS: Insulin Regular 300 UNITS/3 ML VIAL SC PRN ×3 (05:53→17:49)
[2019-06-15 07:54] VITALS: BP 147/76; TEMP 98.4
--- NOTE | 2019-06-15 07:56 | CON ---
DATE OF CONSULTATION: 06/14/2019 REQUESTING PHYSICIAN: Michael Simon MD CONSULTING PHYSICIAN: Jacinto Nick MD REASON FOR CONSULTATION: Cervical lesions seen on recent procedure. HISTORY OF PRESENT ILLNESS: Ms. Cat is a 58-year-old black could G2, P2, who was seen with a history of anemia and found to have hemoglobin of 6.8. She also had some associated shortness of breath and dyspnea on exertion. She was then admitted for evaluation. Workup so far has been a GI consultation for which she has had negative endoscopy, as well as urological consultation. At the time of Dr. Carranza's procedure which included a cystourethroscopy and retrograde pyelography, a cervical lesion was seen and she underwent cervical biopsy at that time. The results of this are pending. I was consulted after this. PAST MEDICAL HISTORY: Includes hypertension, hyperlipidemia, diabetes, arthritis, gout, and atrial fibrillation. She has also had two strokes. ALLERGIES: NO KNOWN ALLERGIES. MEDICATIONS: On admission were; 1. Lipitor. 2. Metformin. 3. Metoprolol. 4. Hydrochlorothiazide. 5. Meloxicam. 6. Insulin. 7. Eliquis. SOCIAL HISTORY: Significance is that she smokes one package of cigarettes per day. She denies alcohol or drug use. She states that her last pelvic exam was several years ago and states that she had a normal Pap smear at that time. FAMILY HISTORY: Remarkable for GI or pelvic malignancy. PHYSICAL EXAMINATION: VITAL SIGNS: Blood pressure 129/75, pulse 61, respirations 16, O2 saturation on room air is 96. GENERAL: She is pleasant and in no acute distress. ABDOMEN: Soft and nontender. There is no guarding or rebound. PELVIC: Pelvic exam done in the [facility] floor exam room shows there to be externally there are no lesions. Speculum exam of the vagina shows an atrophic vagina, but there is a multiparous cervix without bleeding seen. I see no significant lesion on her cervix. On bimanual exam, I do not detect any unusual masses. ASSESSMENT: 1. History of anemia. 2. Cervical lesions seen on recent procedure. Biopsy is pending. PLAN: At this time, we will await the results of the biopsy. I have also ordered a pelvic ultrasound for completeness. We will continue to follow the patient. Job ID: [id number]
[2019-06-15] MEDS: HumuLIN 70/30 (300 UNITS/3 ML VIAL) SC SCH (08:33)
[2019-06-15] MEDS: Losartan 25 MG TAB PO SCH (08:34)
[2019-06-15] MEDS: Metoprolol Tartrate 100 MG TAB PO SCH (08:34)
--- NOTE | 2019-06-15 09:55 | ULT ---
Exam: Pelvic ultrasound including Transabdominal, Transvaginal, And Vascular Duplex with color and spectral Doppler imaging: HISTORY: Anemia COMPARISON: None FINDINGS: The uterus is 6.7 x 3.2 x 4.2 cm Endometrial thickness:0.8 cm Right ovary:Not seen Left ovary:1.0 x 1.7 x 1.1 cm No abscess or significant abnormal fluid collection. Vascular duplex examination demonstrates no evidence for ovarian torsion IMPRESSION: No significant acute process within the pelvis
[2019-06-15 12:21] LABS: Anion Gap 17 mmol/L (10-20); BUN (Urea Nitrogen) 50 mg/dL (9.8-20.1); Calc. Creatinine Clearance 37 mL/min (70-130); Calcium 8.4 mg/dL (7.8-10.44); Carbon Dioxide 18 mmol/L (22-29); Chloride 105 mmol/L (98-107); Estimated GFR-MDRD 30; Glucose 284 mg/dL (70-105); Potassium 4.7 mmol/L (3.5-5.1); Sodium 135 mmol/L (136-145)
[2019-06-15] MEDS ORDERED: predniSONE 20 MG TAB PO SCH (14:00)
--- NOTE | 2019-06-15 16:51 | PRG ---
DATE OF SERVICE: 06/15/2019 TIME OF SERVICE: 1630 hours. This is followup on Ms. Cat from consultation by Dr. on 06/14 as well as follow up on biopsy and ultrasound as ordered by Dr. Jorge L Carranza. Biopsy by Dr. Carranza of cervical polyp was benign endocervix. No dysplasia or malignancy was noted. Ultrasound revealed uterus, adnexa, and ovaries that were within normal limits without pathologic abnormality. The endometrial thickness was 8 mm, which was read by Radiology as no significant acute process within the pelvis. 8 mm would be slightly thickened for a postmenopausal 58-year-old, not on hormone replacement therapy. My review of the ultrasound pictures reveals perhaps small amount of fluid in the superior uterine segment, but not really convincing for true endometrial thickness of 8 mm. We would recommend the patient go ahead and be discharged home. She needs to follow up with myself at [facility] [place] for re-evaluation and possible endometrial biopsy. Job ID: [id number]
[2019-06-16] MEDS ORDERED: predniSONE 20 MG TAB PO SCH (09:00)
== END 2019-06-15 20:16 | disposition home or self-care (01) | DRG 988 ==
LOC: ERS 17:35 → T4-A 22:12
PROVIDERS: ADMIT Internal Medicine; ATTEND Internal Medicine
PROC: 0DB98ZX Excision of Duodenum, Via Natural or Artificial Opening Endoscopic, Diagnostic (ICD-10-PCS; 2019-06-11)
PROC: 0DBN8ZZ Excision of Sigmoid Colon, Via Natural or Artificial Opening Endoscopic (ICD-10-PCS; 2019-06-11)
PROC: 0UBC8ZX Excision of Cervix, Via Natural or Artificial Opening Endoscopic, Diagnostic (ICD-10-PCS; principal; 2019-06-13)
PROC: BT141ZZ Fluoroscopy of Kidneys, Ureters and Bladder using Low Osmolar Contrast (ICD-10-PCS; 2019-06-13)
DX: D50.9 Iron deficiency anemia, unspecified (principal); I48.20 Chronic atrial fibrillation, unspecified; N88.8 Other specified noninflammatory disorders of cervix uteri; N84.1 Polyp of cervix uteri; N30.81 Other cystitis with hematuria; I12.9 Hypertensive chronic kidney disease with stage 1 through stage 4 chronic kidney disease, or unspecified chronic kidney disease; N18.3 Chronic kidney disease, stage 3 (moderate); R40.2362 Coma scale, best motor response, obeys commands, at arrival to emergency department; R40.2142 Coma scale, eyes open, spontaneous, at arrival to emergency department; S50.01XA Contusion of right elbow, initial encounter; R40.2252 Coma scale, best verbal response, oriented, at arrival to emergency department; E10.649 Type 1 diabetes mellitus with hypoglycemia without coma; E10.22 Type 1 diabetes mellitus with diabetic chronic kidney disease; Z79.84 Long term (current) use of oral hypoglycemic drugs; Z86.73 Personal history of transient ischemic attack (TIA), and cerebral infarction without residual deficits; E78.5 Hyperlipidemia, unspecified; M10.9 Gout, unspecified; K64.8 Other hemorrhoids; K57.30 Diverticulosis of large intestine without perforation or abscess without bleeding; F17.210 Nicotine dependence, cigarettes, uncomplicated; Z71.6 Tobacco abuse counseling; I27.20 Pulmonary hypertension, unspecified; K63.5 Polyp of colon
CPT/HCPCS: 36415; 36416; 71045; 74420; 76770; 76856; 80048; 80053; 81001; 81003; 81015; 82607; 82728; 82746; 83540; 83550; 84550; 85025; 85041; 85652; 86850; 86900; 86901; 87086; 88305; 94760; 96365; C1758; C1769; J0696; J1815; J2001; J2704; J2920; J2930; J3010; J3490; J7512

== ENCOUNTER 2025-01-17 13:31 | Inpatient (IN) | payer MEDICAID, OTHER ==
[2025-01-17] MEDS ORDERED: cefTRIAXone (ROCEPHIN) 1 GM VIAL ONE (14:52)
[2025-01-17 15:02] LABS: #Basophils Less than 0.03 10x3/uL (0.0-0.2); #Eosinophils 0.09 10x3/uL (0.0-0.7); #Monocytes 0.86 10x3/uL (0.11-0.59); #Neutrophils 12.30 10x3/uL (1.40-6.50); %Basophils 0.1 % (0.0-1.0); %Eosinophils 0.6 % (0.0-10.0); %Lymphocytes 8.5 % (21.0-51.0); %Monocytes 5.9 % (0.0-10.0); %Neutrophils 84.3 % (42.0-75.0); Hematocrit 21.6 % (36.0-47.0); Hemoglobin 6.6 g/dL (12.0-16.0); Mean Corpuscular Hemoglobin 27.3 pg (27.0-31.0); Mean Corpuscular Volume 89.3 fL (78.0-98.0); Platelet Count 296 10x3/uL (130-400); Red Blood Cell (RBC) Count 2.42 mill/uL (4.20-5.40); White Blood Cell (WBC) Count 14.59 10x3/uL (4.8-10.8)
[2025-01-17 15:33] LABS: ALT (SGPT) Less than 7 U/L (Less than 34); AST (SGOT) 11 U/L (11-34); Albumin 2.7 g/dL (3.1-4.5); Alkaline Phosphatase 121 U/L (40-110); Anion Gap 18 mmol/L (10-20); BUN (Urea Nitrogen) 114 mg/dL (9.8-20.1); Bilirubin, Total 0.2 mg/dL (0.3-1.2); Calc. Creatinine Clearance 0 mL/min (70-130); Calcium 6.7 mg/dL (7.8-10.44); Carbon Dioxide 9 mmol/L (23-31); Chloride 115 mmol/L (98-107); Globulin 5.2 g/dL (2.4-3.5); Glucose 55 mg/dL (80-115); Potassium 5.9 mmol/L (3.5-5.1); Sodium 136 mmol/L (136-145)
[2025-01-17] MEDS ORDERED: Sodium Bicarb 50 MEQ/50 ML Abboject 8.4% SYRINGE ONE (16:37)
[2025-01-17] MEDS ORDERED: Dextrose 50% Abboject 50 ML SYRINGE ONE (16:37)
[2025-01-17] MEDS ORDERED: Albuterol 2.5 MG (0.5 mL) NEB ONE (16:37)
[2025-01-17] MEDS ORDERED: Calcium Gluc 4.6 MEQ/10 ML (100 MG/ML) ONE (16:37)
[2025-01-17] MEDS ORDERED: Sodium Bicarbonate 150 MEQ in D5 1/4 NS 1,000 ML IV SCH (18:00)
[2025-01-17] MEDS ORDERED: Dextrose 50% Abboject 50 ML SYRINGE SLOW IVP PRN (18:15)
[2025-01-17] MEDS ORDERED: Glucagon 1 MG/ML KIT IM PRN (18:15)
[2025-01-17 21:18] LABS: #Basophils Less than 0.03 10x3/uL (0.0-0.2); #Eosinophils 0.08 10x3/uL (0.0-0.7); #Monocytes 0.79 10x3/uL (0.11-0.59); #Neutrophils 11.75 10x3/uL (1.40-6.50); %Basophils 0.1 % (0.0-1.0); %Eosinophils 0.6 % (0.0-10.0); %Lymphocytes 7.4 % (21.0-51.0); %Monocytes 5.8 % (0.0-10.0); %Neutrophils 85.7 % (42.0-75.0); Hematocrit 25.3 % (36.0-47.0); Hemoglobin 7.8 g/dL (12.0-16.0); Mean Corpuscular Hemoglobin 26.9 pg (27.0-31.0); Mean Corpuscular Volume 87.2 fL (78.0-98.0); Platelet Count 276 10x3/uL (130-400); Red Blood Cell (RBC) Count 2.90 mill/uL (4.20-5.40); White Blood Cell (WBC) Count 13.69 10x3/uL (4.8-10.8)
[2025-01-17 21:45] LABS: ALT (SGPT) Less than 7 U/L (Less than 34); AST (SGOT) 8 U/L (11-34); Albumin 2.8 g/dL (3.1-4.5); Alkaline Phosphatase 119 U/L (40-110); Anion Gap 24 mmol/L (10-20); BUN (Urea Nitrogen) 123 mg/dL (9.8-20.1); Bilirubin, Total 0.4 mg/dL (0.3-1.2); Calc. Creatinine Clearance 0 mL/min (70-130); Calcium 6.7 mg/dL (7.8-10.44); Carbon Dioxide 10 mmol/L (23-31); Chloride 115 mmol/L (98-107); Globulin 5.0 g/dL (2.4-3.5); Glucose 96 mg/dL (80-115); Potassium 5.0 mmol/L (3.5-5.1); Sodium 144 mmol/L (136-145)
[2025-01-18] MEDS: Acetaminophen 325 MG TAB PO PRN (02:10)
[2025-01-18] MEDS: EPOETIN ALFA-EPBX 10,000 UNITS/ML VIAL SC SCH (02:49)
[2025-01-18 03:51] VITALS: BMI 30.2
[2025-01-18] MEDS: HYDROcodone/Acetaminophen 7.5/325 mg Tablet PO PRN (04:10)
[2025-01-18 04:58] LABS: #Basophils Less than 0.03 10x3/uL (0.0-0.2); #Eosinophils 0.10 10x3/uL (0.0-0.7); #Monocytes 1.00 10x3/uL (0.11-0.59); #Neutrophils 11.85 10x3/uL (1.40-6.50); %Basophils 0.1 % (0.0-1.0); %Eosinophils 0.7 % (0.0-10.0); %Lymphocytes 6.6 % (21.0-51.0); %Monocytes 7.2 % (0.0-10.0); %Neutrophils 84.8 % (42.0-75.0); Hematocrit 22.6 % (36.0-47.0); Hemoglobin 6.9 g/dL (12.0-16.0); Mean Corpuscular Hemoglobin 26.3 pg (27.0-31.0); Mean Corpuscular Volume 86.3 fL (78.0-98.0); Platelet Count 254 10x3/uL (130-400); Red Blood Cell (RBC) Count 2.62 mill/uL (4.20-5.40); White Blood Cell (WBC) Count 13.97 10x3/uL (4.8-10.8)
[2025-01-18 05:10] LABS: Iron 16 ug/dL (50-170); Iron Binding Capacity, Total 133 mcg/dL (265-497)
[2025-01-18 05:11] LABS: ALT (SGPT) Less than 7 U/L (Less than 34); AST (SGOT) 8 U/L (11-34); Albumin 2.5 g/dL (3.1-4.5); Alkaline Phosphatase 107 U/L (40-110); Anion Gap 21 mmol/L (10-20); BUN (Urea Nitrogen) 116 mg/dL (9.8-20.1); Bilirubin, Total 0.3 mg/dL (0.3-1.2); Calc. Creatinine Clearance 8 mL/min (70-130); Calcium 6.2 mg/dL (7.8-10.44); Carbon Dioxide 13 mmol/L (23-31); Chloride 116 mmol/L (98-107); Globulin 4.6 g/dL (2.4-3.5); Glucose 119 mg/dL (80-115); Potassium 4.5 mmol/L (3.5-5.1); Sodium 145 mmol/L (136-145)
[2025-01-18 05:31] LABS: Hep C Index 0.22 S/CO (0-0.79)
[2025-01-18 05:31] LABS: Ferritin 270.2 ng/mL (10-291)
[2025-01-18 06:06] LABS: Vitamin D, 25 Hydroxy 6.1 ng/ml (> 30.0)
[2025-01-18 06:28] LABS: Hep B Core Total Ab NONREACTIVE (NonReactive); Hep B Core Total Index 0.09 S/CO (0-0.79)
[2025-01-18 06:30] LABS: HBSAB Concentration Less than 8.00 mIU/mL; Hep B Surf Ag NONREACTIVE S/CO (NonReactive); Hep C IgG Ab NONREACTIVE S/CO (NonReactive)
[2025-01-18 06:55] LABS: CAUTI Indications for Culture Acute Hematuria; Glucose, Urine (Dipstick) Normal (Negative); Leukocyte 250 Leu/uL (Negative); Protein, Urine (Dipstick) 50 mg/dL (Neg-Trace); RBC/HPF Greater than 50 HPF (0-3); Specific Gravity, Urine 1.010 (1.002-1.036)
[2025-01-18 06:57] LABS: Bacteria/HPF 1+ HPF (None Seen)
[2025-01-18 06:58] LABS: Urine Culture Reflex Yes Yes
[2025-01-18 07:46] LABS: INR-International Normal Ratio 1.4; Prothrombin Time 17.7 sec (12.0-14.7)
[2025-01-18] MEDS ORDERED: Tuberculin PPD 0.1 ML SYRINGE (10 TEST VIAL) I-DERMAL SCH (10:00)
[2025-01-18] MEDS: Sodium Ferric Gluconate 250 MG in Sodium Chloride 0.9% 250 ML 250 ML IVPB SCH (11:42)
[2025-01-18] MEDS ORDERED: Vancomycin Diaylsis Sliding Scale (Wt 71-99) FS SCH (12:00)
[2025-01-18] MEDS: Tuberculin PPD 0.1 ML SYRINGE (10 TEST VIAL) I-DERMAL SCH (12:56)
[2025-01-18] MEDS ORDERED: Calcium Carbonate 500 MG ChewTAB PO SCH (15:00)
[2025-01-18 15:53] VITALS: BMI 30.2
[2025-01-18] MEDS: hydrALAZINE 20 MG/ML VIAL SLOW IVP PRN (16:37)
[2025-01-18] MEDS: Vancomycin 1.5 GM / NS 500ML VIAL-2-BAG IVPB SCH (18:40)
[2025-01-18] MEDS: cefTRIAXone\\ROCEPHIN 1 GM in Sodium Chloride 0.9% 100 ML IVPB SCH (18:40)
[2025-01-18] MEDS: Ergocalciferol 1.25 MG(50,000 UNITS) CAP PO SCH (18:41)
[2025-01-18] MEDS: NIFEdipine XL 60 MG ER.TAB PO SCH (20:44)
[2025-01-18] MEDS ORDERED: Apixaban 2.5 MG TAB PO SCH (21:00)
[2025-01-18] MEDS ORDERED: Vancomycin 1 GM in Sodium Chloride 0.9% 250 ML 250 ML IVPB SCH (21:00)
[2025-01-18] MEDS: Melatonin 3 MG TAB PO PRN (21:17)
[2025-01-19] MEDS: Ondansetron PF 4 MG/2 ML Vial IVP PRN (01:38)
[2025-01-19] MEDS: Metoclopramide HCl 10 MG (2 mL) VIAL IVP SCH (02:26)
[2025-01-19 05:22] LABS: Anion Gap 21 mmol/L (10-20); BUN (Urea Nitrogen) 65 mg/dL (9.8-20.1); Calc. Creatinine Clearance 12 mL/min (70-130); Calcium 6.6 mg/dL (7.8-10.44); Carbon Dioxide 19 mmol/L (23-31); Chloride 106 mmol/L (98-107); Glucose 98 mg/dL (80-115); Potassium 4.5 mmol/L (3.5-5.1); Sodium 141 mmol/L (136-145)
[2025-01-19] MEDS: CALCIUM GLUC 1 GM/NS 50 ML 1 GM in Premix 1 BAG IVPB SCH (06:18)
[2025-01-19 07:41] LABS: Vancomycin, Trough 23.8 ug/mL
[2025-01-19] MEDS: Calcitriol 0.25 MCG CAP PO SCH (10:22)
[2025-01-19] MEDS: Mupirocin 1 GM TUBE TP SCH (10:22)
[2025-01-19 10:44] LABS: #Basophils Less than 0.03 10x3/uL (0.0-0.2); #Eosinophils 0.05 10x3/uL (0.0-0.7); #Monocytes 0.81 10x3/uL (0.11-0.59); #Neutrophils 14.42 10x3/uL (1.40-6.50); %Basophils 0.1 % (0.0-1.0); %Eosinophils 0.3 % (0.0-10.0); %Lymphocytes 5.6 % (21.0-51.0); %Monocytes 5.0 % (0.0-10.0); %Neutrophils 88.4 % (42.0-75.0); Hematocrit 22.9 % (36.0-47.0); Hemoglobin 7.2 g/dL (12.0-16.0); Mean Corpuscular Hemoglobin 26.7 pg (27.0-31.0); Mean Corpuscular Volume 84.8 fL (78.0-98.0); Platelet Count 240 10x3/uL (130-400); Red Blood Cell (RBC) Count 2.70 mill/uL (4.20-5.40); White Blood Cell (WBC) Count 16.31 10x3/uL (4.8-10.8)
[2025-01-20 04:49] LABS: Anion Gap 20 mmol/L (10-20); BUN (Urea Nitrogen) 78 mg/dL (9.8-20.1); Calc. Creatinine Clearance 11 mL/min (70-130); Calcium 6.6 mg/dL (7.8-10.44); Carbon Dioxide 18 mmol/L (23-31); Chloride 105 mmol/L (98-107); Glucose 93 mg/dL (80-115); Potassium 4.3 mmol/L (3.5-5.1); Sodium 139 mmol/L (136-145)
[2025-01-20 04:54] LABS: Hematocrit 23.6 % (36.0-47.0); Hemoglobin 7.4 g/dL (12.0-16.0); Mean Corpuscular Hemoglobin 26.9 pg (27.0-31.0); Mean Corpuscular Volume 85.8 fL (78.0-98.0); Platelet Count 246 10x3/uL (130-400); Red Blood Cell (RBC) Count 2.75 mill/uL (4.20-5.40); White Blood Cell (WBC) Count 13.90 10x3/uL (4.8-10.8)
[2025-01-20 05:51] LABS: Nucleated RBC (Manual Ct) 4 % (0); Platelet Adequacy Comment Platelets Normal; Polychromasia SLIGHT = 2-3 cells HPF (0-2); Smudge Cells 5.0 %
[2025-01-20 07:59] LABS: Vancomycin, Trough 18.0 ug/mL
[2025-01-20] MEDS ORDERED: Heparin 10,000 UNITS/ 10 ML VIAL CATH PRN (16:00)
[2025-01-20] MEDS: EPOETIN ALFA-EPBX (ESRD) 10,000 UNITS/ML VIAL IVP SCH (16:23)
[2025-01-20] MEDS: Vancomycin HCl 750 MG in Sodium Chloride 0.9% 250 ML 250 ML IVPB SCH (18:34)
[2025-01-20] MEDS: Apixaban 2.5 MG TAB PO SCH (20:30)
[2025-01-21 06:56] LABS: Hematocrit 22.5 % (36.0-47.0); Hemoglobin 7.1 g/dL (12.0-16.0); Mean Corpuscular Hemoglobin 27.0 pg (27.0-31.0); Mean Corpuscular Volume 85.6 fL (78.0-98.0); Platelet Count 227 10x3/uL (130-400); Red Blood Cell (RBC) Count 2.63 mill/uL (4.20-5.40); White Blood Cell (WBC) Count 14.17 10x3/uL (4.8-10.8)
[2025-01-21 07:16] LABS: Vancomycin, Trough 23.7 ug/mL
[2025-01-21 07:19] LABS: Anion Gap 17 mmol/L (10-20); BUN (Urea Nitrogen) 46 mg/dL (9.8-20.1); Calc. Creatinine Clearance 16 mL/min (70-130); Calcium 7.4 mg/dL (7.8-10.44); Carbon Dioxide 21 mmol/L (23-31); Chloride 104 mmol/L (98-107); Glucose 100 mg/dL (80-115); Potassium 4.1 mmol/L (3.5-5.1); Sodium 138 mmol/L (136-145)
[2025-01-21 07:41] LABS: Anisocytosis SLIGHT = 6-15 cells HPF (0-5); Nucleated RBC (Manual Ct) 4 % (0); Platelet Adequacy Comment Platelets Normal; Poikilocytosis SLIGHT = 6-15 cells HPF (0-5); Polychromasia SLIGHT = 2-3 cells HPF (0-2); Schistocytes SLIGHT = 2-5 cells HPF (0-1); Target Cells SLIGHT = 2-5 cells HPF (0-1)
[2025-01-21] MEDS: READ PPD TEST SITE PO SCH (11:18)
[2025-01-22 07:45] LABS: Vancomycin, Trough 20.4 ug/mL
[2025-01-22 07:46] LABS: Anion Gap 17 mmol/L (10-20); BUN (Urea Nitrogen) 57 mg/dL (9.8-20.1); Calc. Creatinine Clearance 12 mL/min (70-130); Calcium 7.6 mg/dL (7.8-10.44); Carbon Dioxide 22 mmol/L (23-31); Chloride 104 mmol/L (98-107); Glucose 112 mg/dL (80-115); Potassium 4.2 mmol/L (3.5-5.1); Sodium 139 mmol/L (136-145)
[2025-01-22 07:59] LABS: Hematocrit 25.5 % (36.0-47.0); Hemoglobin 7.7 g/dL (12.0-16.0); Mean Corpuscular Hemoglobin 26.6 pg (27.0-31.0); Mean Corpuscular Volume 87.9 fL (78.0-98.0); Platelet Count 235 10x3/uL (130-400); Red Blood Cell (RBC) Count 2.90 mill/uL (4.20-5.40); White Blood Cell (WBC) Count 14.17 10x3/uL (4.8-10.8)
[2025-01-22] MEDS ORDERED: Bupivacaine 0.25% HCL 30 ML VIAL ONE (08:07)
[2025-01-22] MEDS ORDERED: Heparin 10,000 UNITS/ 10 ML VIAL ONE (08:07)
[2025-01-22] MEDS ORDERED: PROPOFOL 20 ML ONE (08:34)
[2025-01-22] MEDS ORDERED: PHENYLEPHRINE-NS 100 MCG/ML 10 ML SYRINGE ONE (08:48)
[2025-01-22 09:12] LABS: Anisocytosis SLIGHT = 6-15 cells HPF (0-5); Nucleated RBC (Manual Ct) 3 % (0); Platelet Adequacy Comment Platelets Normal; Polychromasia SLIGHT = 2-3 cells HPF (0-2); Smudge Cells 10.0 %; Target Cells SLIGHT = 2-5 cells HPF (0-1)
[2025-01-22] MEDS ORDERED: Acetaminophen 325 MG TAB ONE (09:43)
[2025-01-22] MEDS: EPOETIN ALFA-EPBX (ESRD) 10,000 UNITS/ML VIAL IVP SCH (17:20)
[2025-01-22] MEDS ORDERED: Nitroglycerin 0.4 MG TAB (25 Tab Bottle) SL PRN (19:52)
[2025-01-22 20:04] LABS: Hematocrit 26.2 % (36.0-47.0); Hemoglobin 8.0 g/dL (12.0-16.0)
[2025-01-22 20:23] LABS: Magnesium 1.9 mg/dL (1.6-2.6)
[2025-01-22 22:57] LABS: Potassium 3.9 mmol/L (3.5-5.1)
[2025-01-22] MEDS: Aspirin 325 MG TAB PO SCH (23:13)
[2025-01-23 07:05] LABS: Hematocrit 26.7 % (36.0-47.0); Hemoglobin 8.0 g/dL (12.0-16.0); Mean Corpuscular Hemoglobin 26.7 pg (27.0-31.0); Mean Corpuscular Volume 89.0 fL (78.0-98.0); Platelet Count 226 10x3/uL (130-400); Red Blood Cell (RBC) Count 3.00 mill/uL (4.20-5.40); White Blood Cell (WBC) Count 14.79 10x3/uL (4.8-10.8)
[2025-01-23 07:15] LABS: Vancomycin, Trough 19.8 ug/mL
[2025-01-23 07:17] LABS: Anion Gap 17 mmol/L (10-20); BUN (Urea Nitrogen) 28 mg/dL (9.8-20.1); Calc. Creatinine Clearance 18 mL/min (70-130); Calcium 7.9 mg/dL (7.8-10.44); Carbon Dioxide 24 mmol/L (23-31); Chloride 100 mmol/L (98-107); Glucose 105 mg/dL (80-115); Potassium 4.0 mmol/L (3.5-5.1); Sodium 137 mmol/L (136-145)
[2025-01-23 07:37] LABS: Anisocytosis SLIGHT = 6-15 cells HPF (0-5); Nucleated RBC (Manual Ct) 4 % (0); Platelet Adequacy Comment Platelets Normal; Polychromasia MODERATE = 3-4 cells HPF (0-2); Smudge Cells 5.1 %; Target Cells SLIGHT = 2-5 cells HPF (0-1); Toxic Granulation SLIGHT
[2025-01-23] MEDS: Senokot S 8.6-50 MG TAB PO SCH (20:51)
[2025-01-24 07:06] LABS: Hematocrit 26.1 % (36.0-47.0); Hemoglobin 7.9 g/dL (12.0-16.0); Mean Corpuscular Hemoglobin 26.9 pg (27.0-31.0); Mean Corpuscular Volume 88.8 fL (78.0-98.0); Platelet Count 209 10x3/uL (130-400); Red Blood Cell (RBC) Count 2.94 mill/uL (4.20-5.40); White Blood Cell (WBC) Count 11.96 10x3/uL (4.8-10.8)
[2025-01-24 07:19] LABS: Vancomycin, Trough 17.0 ug/mL
[2025-01-24 07:20] LABS: Anion Gap 18 mmol/L (10-20); BUN (Urea Nitrogen) 37 mg/dL (9.8-20.1); Calc. Creatinine Clearance 13 mL/min (70-130); Calcium 8.4 mg/dL (7.8-10.44); Carbon Dioxide 20 mmol/L (23-31); Chloride 102 mmol/L (98-107); Glucose 99 mg/dL (80-115); Potassium 3.9 mmol/L (3.5-5.1); Sodium 136 mmol/L (136-145)
[2025-01-24 07:38] LABS: Anisocytosis SLIGHT = 6-15 cells HPF (0-5); Hypersegmented Neutrophil SLIGHT (None Seen); Nucleated RBC (Manual Ct) 4 % (0); Platelet Adequacy Comment Platelets Normal; Polychromasia MODERATE = 3-4 cells HPF (0-2); Schistocytes SLIGHT = 2-5 cells HPF (0-1); Smudge Cells 4.0 %; Target Cells SLIGHT = 2-5 cells HPF (0-1); Toxic Granulation SLIGHT
[2025-01-24] MEDS: Cephalexin 250 MG CAP PO SCH (09:02)
[2025-01-24] MEDS: Vancomycin HCl 750 MG in Sodium Chloride 0.9% 250 ML 250 ML IVPB SCH (17:50)
[2025-01-25 11:56] VITALS: TEMP 99.1
[2025-01-25 15:06] VITALS: BP 133/64
== END 2025-01-25 17:06 | disposition home or self-care (01) | DRG 674 ==
LOC: ERS 13:31 → 2NO 17:15
PROVIDERS: ADMIT Family Medicine; ATTEND Student in an Organized Health Care Education/Training Program
PROC: 3E03329 Introduction of Other Anti-infective into Peripheral Vein, Percutaneous Approach (ICD-10-PCS; 2025-01-17)
PROC: 06HY33Z Insertion of Infusion Device into Lower Vein, Percutaneous Approach (ICD-10-PCS; principal; 2025-01-19)
PROC: 5A1D70Z Performance of Urinary Filtration, Intermittent, Less than 6 Hours Per Day (ICD-10-PCS; 2025-01-20)
PROC: 0JH63XZ Insertion of Tunneled Vascular Access Device into Chest Subcutaneous Tissue and Fascia, Percutaneous Approach (ICD-10-PCS; 2025-01-23)
PROC: 05HM33Z Insertion of Infusion Device into Right Internal Jugular Vein, Percutaneous Approach (ICD-10-PCS; 2025-01-23)
PROC: 3E03329 Introduction of Other Anti-infective into Peripheral Vein, Percutaneous Approach (ICD-10-PCS; 2025-01-23)
PROC: B5131ZA Fluoroscopy of Right Jugular Veins using Low Osmolar Contrast, Guidance (ICD-10-PCS; 2025-01-23)
PROC: 3E04329 Introduction of Other Anti-infective into Central Vein, Percutaneous Approach (ICD-10-PCS; 2025-01-23)
DX: N17.9 Acute kidney failure, unspecified (principal); E87.20 Acidosis, unspecified; I48.20 Chronic atrial fibrillation, unspecified; L97.819 Non-pressure chronic ulcer of other part of right lower leg with unspecified severity; L03.115 Cellulitis of right lower limb; N18.6 End stage renal disease; E11.622 Type 2 diabetes mellitus with other skin ulcer; E11.22 Type 2 diabetes mellitus with diabetic chronic kidney disease; I12.9 Hypertensive chronic kidney disease with stage 1 through stage 4 chronic kidney disease, or unspecified chronic kidney disease; D63.1 Anemia in chronic kidney disease; I10 Essential (primary) hypertension; E78.5 Hyperlipidemia, unspecified; E88.09 Other disorders of plasma-protein metabolism, not elsewhere classified; Z86.73 Personal history of transient ischemic attack (TIA), and cerebral infarction without residual deficits; Z79.01 Long term (current) use of anticoagulants
CPT/HCPCS: 36415; 36416; 36430; 71045; 76770; 76856; 80048; 80053; 80202; 81001; 82306; 82668; 82728; 83036; 83540; 83550; 83605; 83735; 83880; 83970; 84100; 84484; 85025; 85610; 86141; 86580; 86704; 86706; 86803; 86850; 86900; 86901; 87040; 87070; 87077; 87081; 87086; 87186; 87205; 87340; 90935; 93005; 93010; 96374; 96375; 97139; C1752; G0257; J0169; J0360; J0612; J0613; J0665; J0696; J1644; J1815; J2704; J2765; J2916; J3371; J3373; J7030; J7042; J7050; J7070; J7611; J7999; P9016; Q5105; Q5106